=== PATIENT | female | born 1955 | race Caucasian/White ===

== ENCOUNTER → 2017-02-07 | Outpatient (CLI) | payer OTHER | LOC: MAMO 10:30 | DX: Z12.31 Encounter for screening mammogram for malignant neoplasm of breast (principal); I31.3 Pericardial effusion (noninflammatory) | CPT/HCPCS: 71020; G0202 ==

== ENCOUNTER → 2017-02-21 | Outpatient (CLI) | payer OTHER | LOC: HEART 5 10:10 | DX: R06.02 Shortness of breath (principal) | CPT/HCPCS: 94060; 94729 ==